=== PATIENT | female | born 1955 | race Caucasian/White ===

== ENCOUNTER 2023-06-06 15:57 | Emergency (ER) | payer MEDICARE, OTHER, SELFPAY ==
[2023-06-06 16:03] VITALS: BP 144/60; PULSE 75; RESP 16; O2SAT 100; BMI 30.7
--- NOTE | 2023-06-06 16:29 | ED.DIZZY ---
HPI - Dizziness <Barron Purcell PA-C - Last Filed: 06/06/23 16:56> General Chief Complaint: Dizziness Stated Complaint: Dizziness Time Seen by Provider: 06/06/23 16:14 Source: EMS Mode of arrival: EMS History of Present Illness HPI Narrative: This is a 67-year-old female presents emergency department due to 1 episode of dizziness. She states that she [place] the ?road went [place] wavy?. 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 She was not experiencing any of the symptoms currently. She denies any slurred speech, facial drooping, weakness, nausea, vomiting, fevers, or any other concerning signs or symptoms. States she does have a history of vertigo in the past. 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 Denies any chest pain, lightheadedness, or any other concerning signs or symptoms. Related Data Previous Rx's Medication Instructions Recorded meclizine 25 mg tablet 25 mg PO TID PRN dizziness #20 tabs 06/06/23 Review of Systems <Barron Purcell PA-C - Last Filed: 06/06/23 16:56> Review of Systems Narrative: GENERAL: Denies chills, fatigue, malaise, fever, sweats. HEENT: Denies sinus pain, ear pain, sore throat, difficulty swallowing, dizziness. RESPIRATORY: Denies dyspnea, cough, wheezing, hemoptysis, sputum. CARDIOVASCULAR: Denies chest pain, palpitations, orthopnea, edema, GASTROINTESTINAL: Denies nausea, vomiting, abdominal pain, diarrhea, constipation, melena. : Denies dysuria, frequency, incontinence, hematuria, urinary retention. MUSCULOSKELETAL: denies weakness, joint pain, or bony pain SKIN: Denies rash, skin lesions, or other NEUROLOGIC: Reports dizziness, none currently Denies weakness, headache, numbness, change in speech, confusion, seizures, incoordination. PSYCHIATRIC: No concerning psychosocial issues. 12 point review of systems is negative except for those stated above Exam <Barron Purcell PA-C - Last Filed: 06/06/23 16:56> Narrative Exam Narrative: GENERAL: Well-developed patient, in mild distress. HEAD: Atraumatic. Normocephalic. EYES: Pupils equal round and reactive. Extraocular motions intact. No scleral icterus. No injection or drainage. ENT: Nose without bleeding, purulent drainage. Throat without erythema, tonsillar hypertrophy or exudate. Airway patent. NECK: Trachea midline. Non tender EXTREMITIES: No edema or joint tenderness. NEURO: AOx3. Cranial nerves 2-12 intact. No focal deficits on exam. SKIN: No rash or erythema of visible areas CARDIOVASCULAR: Regular rate and rhythm without murmurs, gallops, or rubs. RESPIRATORY: Clear to auscultation. Breath sounds equal bilaterally. No wheezes, rales, or rhonchi. Initial Vital Signs Initial Vital Signs: Vital Signs Pulse Rate 75 06/06/23 16:03 Respiratory Rate 16 06/06/23 16:03 Blood Pressure 144/60 H 06/06/23 16:03 Pulse Oximetry 100 06/06/23 16:03 Oxygen Delivery Method Room Air 06/06/23 16:03 <Belle Reyna MD - Last Filed: 06/06/23 18:44> Initial Vital Signs Initial Vital Signs: Vital Signs Pulse Rate 75 06/06/23 16:03 Respiratory Rate 16 06/06/23 16:03 Blood Pressure 144/60 H 06/06/23 16:03 Pulse Oximetry 100 06/06/23 16:03 Oxygen Delivery Method Room Air 06/06/23 16:03 Course <Barron Purcell PA-C - Last Filed: 06/06/23 16:56> Vital Signs Vital signs: Vital Signs - 8 hr 06/06/23 16:03 06/06/23 17:16 Pulse Rate 75 71 Respiratory Rate 16 19 Blood Pressure 144/60 H 157/73 H Pulse Oximetry 100 97 Oxygen Delivery Method Room Air Room Air <Belle Reyna MD - Last Filed: 06/06/23 18:44> Vital Signs Vital signs: Vital Signs - 8 hr 06/06/23 16:03 06/06/23 17:16 Pulse Rate 75 71 Respiratory Rate 16 19 Blood Pressure 144/60 H 157/73 H Pulse Oximetry 100 97 Oxygen Delivery Method Room Air Room Air MDM - Dizziness <Barron Purcell PA-C - Last Filed: 06/06/23 16:56> MDM Narrative Medical decision making narrative: ED course: This is a 67-year-old female presenting to the emergency department due to suspected episode of benign positional vertigo. Her neuro exam was very reassuring and she was not presenting with any concerning symptoms and low concern for any kind of hemorrhagic or ischemic stroke or TIA. She was not presenting with any chest pain and low concern for anything cardiac in nature. Her symptoms have improved since the initial episode. Recommended rest and hydration. Meclizine will be prescribed as well. She does state she has a history of benign vertigo that she was had in the past. Shared decision-making utilized and no head CT ordered. CC: Dizziness Complicating co-morbidities: None Data collected from: Previous notes Medical records reviewed: Patient was not been to this emergency department in the past and has no other records to review. Differential considered, but not limited to: ACS, hemorrhagic/ischemic stroke, TIA, benign positional vertigo Exam documented above, pertinent findings include: Neuro exam completely unremarkable Lab Test results independently reviewed as above. Pertinent findings: None obtained Imaging studies independently reviewed: None obtained Scores Used: None MIPS Elements: None Consultations: None Treatments: None Re-evaluations: None Discussion: Discussed plan with the patient was comfortable with the plan Diagnosis: Benign positional vertigo Disposition: see below, along with detailed discharge instructions that have been reviewed with patient as well as indications for ED re-evaluation and additional outpatient follow up Discharge Plan Departure Patient Disposition: Home Clinical Impression: Benign paroxysmal positional vertigo Instructions: DI for Vertigo Activity Restrictions/Additional Instructions: Thank you for coming to the [facility] Emergency Department today. I am glad that your symptoms are starting to feel better. As we discussed suspect this is benign positional vertigo rather than any kind of intracranial bleed. You may take the meclizine as prescribed if your symptoms are to recur. Please return to the emergency department if you develop any slurred speech, weakness, nausea, vomiting, or any other concerning signs or symptoms. I hope you feel better soon. Please follow up with your primary care provider within a week if your symptoms continue. If you do not have a primary care provider please contact the [facility] Resource line at [phone]. They will ask some questions about your medical history and help you get set up with a provider in the community. Prescriptions: New meclizine 25 mg tablet 25 mg PO TID PRN (Reason: dizziness) Qty: 20 0RF Stand Alone Forms: Patient Portal/API ED Sign-out <Belle Reyan MD - Last Filed: 06/06/23 18:44> Cosign ED Attending Cosignature Attestation: I was immediately available in the department for consultation throughout this patient's visit. Belle Reyna MD
[2023-06-06 17:16] VITALS: BP 157/73; PULSE 71; RESP 19; O2SAT 97
== END 2023-06-06 17:11 | disposition home or self-care (01) ==
PROVIDERS: Emergency Provider Physician Assistant Medical
DX: H81.10 Benign paroxysmal vertigo, unspecified ear (principal)
CPT/HCPCS: 99281; 99282